=== PATIENT | male | born 1990 | race African-American/Black ===

== ENCOUNTER 2022-04-02 09:12 | Emergency (ER) | payer MEDICAID ==
[~2022-04-02] VITALS: Ht 175.3 cm; Wt 84.0 kg
[2022-04-02 10:52] VITALS: BP 133/88
[2022-04-02] MEDS ORDERED: ALBUTEROL SULFATE HFA 90 MCG/PUFF 8 GM INHALER IH ONE (11:45)
[2022-04-02] MEDS ORDERED: ALBU8HFA IH (11:51)
== END 2022-04-02 12:17 | disposition home or self-care (01) ==
LOC: EMS 09:14
DX: J45.909 Unspecified asthma, uncomplicated (principal); Z87.09 Personal history of other diseases of the respiratory system; Z91.013 Allergy to seafood
CPT/HCPCS: 94640; 99283; J3535

== ENCOUNTER 2024-06-15 12:14 | Emergency (ER) | payer MEDICAID ==
[~2024-06-15] VITALS: Ht 175.3 cm; Wt 81.8 kg
[~2024-06-15 12:14] MED LIST: ALBU18HF12 IH
[2024-06-15 12:19] VITALS: TEMP 98.1
[2024-06-15 12:47] LABS: COVID AG,FIA SOURCE NASAL SWAB
[2024-06-15 13:49] LABS: SARS-COV2 (COVID) ANTIGEN,FIA Negative (Negative)
[2024-06-15 13:50] LABS: INFLUENZA TYPE A NEGATIVE FOR TYPE A (NEGATIVE); INFLUENZA TYPE B NEGATIVE FOR TYPE B (NEGATIVE)
[2024-06-15 14:00] VITALS: BP 115/71
[2024-06-15] MEDS: IPRATROPIUM BROMIDE 0.5 MG/2.5 ML NEB SOLUTION NEB ONE (14:10)
[2024-06-15] MEDS: ALBUTEROL SULFATE 2.5 MG/0.5 ML NEB SOLUTION NEB ONE (14:10)
[2024-06-15 14:13] VITALS: PULSE 86; RESP 20; O2SAT 95
[2024-06-15] MEDS ORDERED: ALBU18HF12 IH (14:14)
[2024-06-15 14:25] VITALS: PULSE 88; RESP 20; O2SAT 99
[2024-06-15] MEDS ORDERED: DEXAMETHASONE SOD PHOS 4 MG/ML 5 ML VIAL IVP ONE (14:30)
[2024-06-15] MEDS ORDERED: CefTRIAXone 1 GM/DEXTROSE 50 ML IV ONE (14:30)
[2024-06-15] MEDS ORDERED: METH4TAB3 PO (14:30)
[2024-06-15] MEDS ORDERED: AZIT-167 PO (14:30)
[2024-06-15] MEDS ORDERED: AZITHROMYCIN 500 MG/NS 250 ML IV ONE (14:30)
[2024-06-15 14:57] LABS: BASOPHILS % (AUTO) 0.4 % (0.0-2.0); EOSINOPHILS % (AUTO) 2.9 % (1.0-6.0); HEMATOCRIT 48.2 % (41-53); HEMOGLOBIN 15.6 g/dL (13.5-17.5); LYMPHOCYTES # (AUTO) 1.5 K/uL (1.0-4.8); LYMPHOCYTES % (AUTO) 23.2 % (22.0-44.0); MEAN CORPUSCULAR HEMOGLOBIN 28.2 pg (26.0-34.0); MEAN CORPUSCULAR HGB CONC 32.3 G/dL (31.0-37.0); MEAN CORPUSCULAR VOLUME 87 fL (80-100); MONOCYTES # (AUTO) 0.8 K/uL (0.1-1.0); MONOCYTES % (AUTO) 13.4 % (2.0-9.0); NEUTROPHILS # (AUTO) 3.8 K/uL (1.8-7.7); NEUTROPHILS % (AUTO) 60.1 % (40.0-70.0); PLATELET COUNT (AUTO) 238 K/uL (150-450); RED BLOOD CELL COUNT(AUTO) 5.53 MIL/uL (4.50-5.90); RED CELL DISTRIBUTION WIDTH 14.9 % (11.5-14.5); WHITE BLOOD COUNT (AUTO) 6.3 K/uL (4.5-11.0)
[2024-06-15 15:01] LABS: ANION GAP 9 mmol/L (8-16); CALCIUM, TOTAL 9.1 mg/dL (8.8-10.5); CARBON DIOXIDE 26 mmol/L (22-29); CHLORIDE 102 mmol/L (98-107); CREATININE 1.23 mg/dL (0.60-1.30); GLOMERULAR FILTR. RATE CALC > 60 mL/min (>60); GLUCOSE,RANDOM 90 mg/dL (70-110); POTASSIUM 4.1 mmol/L (3.5-5.1); SODIUM SERUM 137 mmol/L (136-145); UREA NITROGEN, BLOOD 12 mg/dL (7-18)
== END 2024-06-15 15:54 | disposition left against medical advice (07) ==
LOC: EMS 12:23
DX: J18.9 Pneumonia, unspecified organism (principal); J45.909 Unspecified asthma, uncomplicated; Z91.013 Allergy to seafood; Z20.822 Contact with and (suspected) exposure to COVID-19
CPT/HCPCS: 71045; 80048; 85025; 87804; 94640; 99284; 36415-L1; 36415-TC; J7613

== ENCOUNTER 2024-08-07 13:47 | Emergency (ER) | payer MEDICAID ==
[~2024-08-07] VITALS: Ht 175.3 cm; Wt 81.8 kg
[~2024-08-07 13:47] MED LIST changes: +AZIT-167 PO; +METH4TAB3 PO
[2024-08-07 13:48] VITALS: BP 132/76; PULSE 80; RESP 18; TEMP 98; O2SAT 97
[2024-08-07] MEDS: PROPARACAINE HCL 0.5% 15 ML OPHTHALMIC SOLUTION OS ONE (14:24)
[2024-08-07] MEDS: FLUORESCEIN SODIUM 1 MG STRIP OS ONE (14:24)
[2024-08-07] MEDS ORDERED: POLYOS OS (14:50)
[2024-08-07] MEDS: POLYMYXIN B/TRIMETHOPRIM 10 ML OPHTHALMIC SOLUTION OS ONE (15:09)
[2024-08-07] MEDS: ALBUTEROL SULFATE HFA 90 MCG/PUFF 8 GM INHALER IH ONE (15:09)
== END 2024-08-07 15:15 | disposition home or self-care (01) ==
LOC: EMS 13:47
DX: H10.89 Other conjunctivitis (principal); J45.909 Unspecified asthma, uncomplicated; Z91.013 Allergy to seafood
CPT/HCPCS: 99283; 94640; J3535

== ENCOUNTER 2024-12-14 13:33 | Emergency (ER) | payer MEDICAID ==
[~2024-12-14] VITALS: Ht 175.3 cm; Wt 77.2 kg
[~2024-12-14 13:33] MED LIST changes: +POLYOS OS
[2024-12-14 14:05] VITALS: TEMP 97.2
[2024-12-14 14:58] VITALS: BP 121/64; PULSE 70; RESP 18; O2SAT 96
== END 2024-12-14 15:12 | disposition home or self-care (01) ==
LOC: EMS 13:39
DX: J45.901 Unspecified asthma with (acute) exacerbation (principal); Z76.0 Encounter for issue of repeat prescription; Z91.013 Allergy to seafood
CPT/HCPCS: 99281; Z7502

== ENCOUNTER 2025-07-14 12:22 | Emergency (ER) | payer MEDICAID ==
[~2025-07-14] VITALS: Ht 175.3 cm; Wt 77.3 kg
[2025-07-14 12:29] VITALS: BP 136/78; TEMP 98.4
[2025-07-14] MEDS: IPRATROPIUM BROMIDE 0.5 MG/2.5 ML NEB SOLUTION NEB ONE (12:55)
[2025-07-14] MEDS: ALBUTEROL SULFATE 2.5 MG/0.5 ML NEB SOLUTION NEB ONE (12:56)
[2025-07-14 13:01] VITALS: PULSE 81; RESP 18; O2SAT 97
[2025-07-14 13:11] VITALS: PULSE 75; RESP 17; O2SAT 100
[2025-07-14] MEDS ORDERED: ALBU18HF12 IH (13:28)
== END 2025-07-14 13:33 | disposition home or self-care (01) ==
LOC: EMS 12:22
DX: J45.901 Unspecified asthma with (acute) exacerbation (principal); R06.02 Shortness of breath; Z91.013 Allergy to seafood; Z79.899 Other long term (current) drug therapy
CPT/HCPCS: 94640; 99283